=== PATIENT | female | born 1960 | race Caucasian/White ===

== ENCOUNTER 2024-01-31 09:32 | Outpatient (AMB) | payer BC, SELFPAY ==
--- NOTE | 2024-01-31 10:47 | MHC.OFFWIV ---
Intake Vital Signs 01/31/24 10:51 Height 5 ft 7 in Weight 218 lb BMI 34.1 BP 140/70 H Blood Pressure Location Lt brachial Position Sitting Pulse 102 H Pulse Source Pulse Oximeter Temp 97.9 F Temp Source Temporal Artery Scan Intake Visit Reasons: [employer]; Cough, fatigue ([phone]) Intake Note: pt is here today for cough fatigue started 1 week ago Patient Tobacco Use Status: Never used Tobacco Allergies No Known Allergies Allergy (Verified 01/31/24 10:49) Do you need a note to return to daycare/school/sports/work: Yes HPI HPI Comments History of Present Illness Details Patient presents to the walk in for 1 week cough, congestion, fatigue and decreased appetite reports sister was sick with the same Denies fever, chest pain, shortness of breath, palpitations, syncope, weakness cough productive of clear thin sputum Called out sick from work, requesting work note PFSH Social History Patient Tobacco Use Status: Never used Tobacco Review of Systems Const All systems reviewed & are unremarkable except as noted in HPI and below Physical Exam Vital Signs: Last Vital Signs Temp 97.9 F 01/31/24 10:51 Pulse 102 H 01/31/24 10:51 BP 140/70 H 01/31/24 10:51 BMI result Body Mass Index 34.1 General: awake, alert, oriented. Answers questions appropriately. Fully engaged in examination. Skin: warm, dry, intact HEENT: TMs intact bilaterally, without erythema. Posterior pharynx without erythema or exudate. Sclera without icterus or injection. Cardiac: External chest normal in appearance. RRR Respiratory: +cough. LSCTAB. Abdomen: without gross distension. Neurological: Oriented to person, place, time and situation. Thought process intact. Psychiatric: Appropriate mood and affect. Good judgment and insight. Assessment & Plan Assessment & Plan (1) Bronchitis: Code(s): J40 - Bronchitis, not specified as acute or chronic Plan Z-Mikel as directed Prednisone 40 mg p.o. daily x5 days Benzonatate 100mg po bid as needed Work note provided Rest, drink plenty of fluids, tylenol or motrin as needed. Recommend taking OTC nasal decongestants or flonase. Follow up with pcp or in clinic for any new or worsening symptoms. Go to ER for shortness of breath, chest pain, palpitations, weakness, dizziness. Medications: New azithromycin For 250 mg dose pack: take 500 mg today (day 1), then 250 mg for 4 days (days 2-5) PO 6 tabs 0RF prednisone 40 mg (2 x 20 mg) PO DAILY 5 days 10 tabs 0RF benzonatate 100 mg PO BID PRN 20 caps 0RF cough Coding Level of Care Code Est Pt Level 3 (48620) Diagnoses Bronchitis J40
[2024-01-31 10:51] VITALS: BP 140/70; PULSE 102; TEMP 36.6; BMI 34.1
== END 2024-01-31 11:21 | disposition home or self-care (01) ==
PROVIDERS: PCP Internal Medicine; Visit Provider Registered Nurse Emergency
DX: J40 Bronchitis, not specified as acute or chronic (principal)
CPT/HCPCS: 99213

== ENCOUNTER 2024-02-03 10:20 | Outpatient (AMB) | payer BC, SELFPAY ==
--- NOTE | 2024-02-03 10:26 | AM.OFFWIN_ITS ---
Intake Vital Signs 02/03/24 10:27 Height 5 ft 7 in Weight 221 lb BMI 34.6 BP 120/70 Blood Pressure Location Lt brachial Position Sitting Pulse 86 Pulse Source Pulse Oximeter Temp 97.3 F Temp Source Temporal Artery Scan Pulse Oximetry (%) 95 Oxygen Delivery Method Room Air Intake Visit Reasons: EP Cough, Fatigue Intake Note: pt is here today for cough fatigue started 1 weeks ago Patient Tobacco Use Status: Never used Tobacco Allergies No Known Allergies Allergy (Verified 02/03/24 10:30) Do you need a note to return to daycare/school/sports/work: Yes HPI EP Cough, Fatigue HPI Details 63 year old female patient presents toda y with ongoing cough, fatigue, reduced appetite. States this started about 2 weeks ago. She was seen at the ID clinic this past Wednesday and was started on 5 days prednisone, z-romero, and also Benzonatate. She reports symptoms remain the same today. Denies any shortness of breath. Denies fever. Is a smoker and is trying to cut down. Denies any GI symptoms. [facility] Social History Patient Tobacco Use Status: Never used Tobacco Review of Systems Const All systems reviewed & are unremarkable except as noted in HPI and below Physical Exam Vital Signs: Last Vital Signs Temp 97.3 F 02/03/24 10:27 Pulse 86 02/03/24 10:27 BP 120/70 02/03/24 10:27 Pulse Ox 95 02/03/24 10:27 Oxygen Delivery Method Room Air 02/03/24 10:27 BMI result Body Mass Index 34.6 Const General: cooperative, healthy appearing and no acute distress HEENT Head: Yes normal to inspection Ears: hearing grossly normal bilaterally General nose exam: Normal external nose present Mouth: Normal oral and palatal mucosa present Throat: Yes posterior oropharynx normal Neck Neck: Yes no lymphadenopathy Resp Effort & Inspection: normal respiratory effort and Actively coughing Quality: actively coughing Auscultation: clear to auscultation bilaterally Cardio Rate: regular rate Rhythm: regular rhythm Skin General skin exam: no rashes or lesions noted Extrem General: Yes capillary refill normal and Yes no clubbing, cyanosis or edema Psych Appearance: grossly normal Mental Status: mental status grossly normal Speech and movement: Normal speech and movement present Assessment & Plan Assessment & Plan (1) Bronchitis: Code(s): J40 - Bronchitis, not specified as acute or chronic Plan: Patient has ongoing upper respiratory symptoms. I am going to start her instead on Doxy and also prolong her prednisone regimen for several more days. I am also going to start her on an albuterol inhaler. We reviewed indications, use, possible s/e of all medications. Advised increased hydration, healthy food/vitamin intake. If she does not improve she can return to the clinic or PCP, or certainly the ED if she develops any shortness of breath. All questions were answered and she agrees to plan. Encouraged ongoing smoking cessation. Work note provided. Medications: New doxycycline hyclate 100 mg PO BID 7 days 14 caps 0RF J40 - Bronchitis, not specified as acute or chronic albuterol sulfate 90 mcg/actuation 1 inh inhalation QID PRN 6.7 grams 0RF shortness of breath or wheezing J40 - Bronchitis, not specified as acute or chronic Changed From prednisone 40 mg (2 x 20 mg) PO DAILY 5 days 10 tabs 0RF J40 - Bronchitis, not specified as acute or chronic To prednisone 40 mg (2 x 20 mg) PO DAILY 3 days 6 tabs 0RF J40 - Bronchitis, not specified as acute or chronic Coding Level of Care Code Est Pt Level 4 (13813) Diagnoses Bronchitis J40
[2024-02-03 10:27] VITALS: BP 120/70; PULSE 86; TEMP 36.3; O2SAT 95; BMI 34.6
== END 2024-02-03 11:26 | disposition home or self-care (01) ==
PROVIDERS: PCP Internal Medicine; Visit Provider Nurse Practitioner Family
DX: J40 Bronchitis, not specified as acute or chronic (principal)
CPT/HCPCS: 99214